=== PATIENT | female | born 1965 | race Caucasian/White ===

== ENCOUNTER 2017-04-22 12:17 | Emergency (ER) | payer OTHER ==
[~2017-04-22] VITALS: Ht 162.6 cm; Wt 56.7 kg
[2017-04-22 12:42] VITALS: BP 123/93
[2017-04-22] MEDS ORDERED: IBUPROFEN 600 MG TABLET PO ONE ×2 (12:43→13:00)
== END 2017-04-22 12:50 | disposition home or self-care (01) ==
LOC: ER 12:22
DX: M77.11 Lateral epicondylitis, right elbow (principal); C85.90 Non-Hodgkin lymphoma, unspecified, unspecified site; Z88.0 Allergy status to penicillin
CPT/HCPCS: 99282; A4606; Z7610